=== PATIENT | female | born 1975 | race Two or more races ===

== ENCOUNTER 2016-08-01 03:55 | Inpatient (IN) | payer OTHER ==
[~2016-08-01] VITALS: Ht 165.1 cm; Wt 68.0 kg
[2016-08-01] VITALS (63 sets, daily range): BP systolic 98–141; BP diastolic 53–86
[~2016-08-01 03:55] MED LIST: ANUS2.5C2 PR; COLA100C3 PO; DIBU1OI TOP; MILKSUS PO; MOTR200T44 PO; STUACAP PO; TYLE325T5 PO
[2016-08-01 04:50] LABS: MEAN CORPUSCULAR HEMOGLOBIN 29.2 pg (27.0-33.0); MEAN CORPUSCULAR HGB CONC 33.1 g/dl (32.0-36.5); MEAN CORPUSCULAR VOLUME 88.2 fl (80.0-96.0); RED CELL DISTRIBUTION WIDTH 13.8 % (11.5-14.5); WHITE BLOOD COUNT 8.7 K/mm3 (4.0-10.0)
[2016-08-01] MEDS ORDERED: FENTANYL 2MCG/ML ROPIVACAINE 0.2% IN 0.9% NACL 200ML IVBAG As Ordered ONE (05:23)
[2016-08-01] MEDS ORDERED: LACTATED RINGER'S 1000 ML IV STA (05:26)
[2016-08-01] MEDS ORDERED: EPIDURAL COMMENT XX SCH (05:27)
[2016-08-01] MEDS ORDERED: ePHEDrine SULFATE 25 MG/5 ML(5MG/ML) SYRINGE IV PRN (05:27)
[2016-08-01] MEDS ORDERED: diphenhydrAMINE INJ 50MG/ML VIAL (J1200) IV PRN (05:27)
[2016-08-01] MEDS: FENTANYL/ROPIVACAINE/NACL BAG 200 ML EPIDURAL SCH (05:27)
[2016-08-01] MEDS ORDERED: LACTATED RINGER'S 1000 ML IV PRN (05:27)
[2016-08-01] MEDS ORDERED: ONDANSETRON 4MG/2ML VIAL (J2405) IV PRN (05:27)
[2016-08-01] MEDS ORDERED: EPIDURAL/PCA KEYS XX PRN (05:27)
[2016-08-01] MEDS ORDERED: REFRIGERATOR IV KEYS XX PRN (05:27)
[2016-08-01] MEDS ORDERED: NALOXONE INJ 0.4 MG/1 ML VIAL (J2310) IV PRN (05:27)
--- NOTE | 2016-08-01 05:41 | HPEPDOC ---
Obstetrical History & Physical General Date of Admission August 01, 2016 at 04:09 History of Present Illness 40 y/o at 41+2 presents with painful, reg ctx's. Was scheduled for IOL later today. Declined IOL at 39 weeks even though it was indicated and offered to her. was in [place], seen at [place], yolande scan not in chart and not available at this time, pt states it was normal, done in OR. 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 Past Medical History Medical History denies Surgical History: section Family History Significant Family History: No pertinent family hx Family History denies Social History Marital Status: Family situation: Spouse/partner home Psychosocial History: No pertinent psych hx * Smoker: non-smoker Alcohol: Denies Drugs: denies Abuse Violence Screening Have you been hit/kicked/slapp: No Have you been sexually assault: No Imunizations Tdap status: current Influenza Status: current Allergies Coded Allergies: No Known Allergies (Verified Allergy, Unknown, 08/16/10) Medications Scheduled (Suleman One 27-0.8-200 mg) 1 Cap Cap, 1 CAP PO DAILY Scheduled PRN Acetaminophen (Tylenol) 325 Mg Tab, 1,000 MG PO Q6HP PRN for MILD PAIN (PS 1-4) Dibucaine (Dibucaine) 1 % Oin, 1 % TOP Q4HP PRN for PAIN Docusate Sodium (Colace) 100 Mg Cap, 100 MG PO QHSP PRN for CONSTIPATION Hydrocortisone (Anusol-Hc) 2.5 % Cre, 0 MD Q4HP PRN for HEMORRHOIDS Ibuprofen (Motrin Ib) 200 Mg Tab, 800 MG PO Q8HP PRN for MODERATE PAIN (PS 5-7) Milk Of Magnesia (Milk of Magnesia) 1,200 Mg/15 Ml Marilee, 30 ML PO DAILYPRN PRN for CONSTIPATION Physical Examination Physical Examination GENERAL: Alert and oriented times three. ABDOMEN: Gravid and non-tender to touch. FETUS: Is vertex (VTX) by sterile vaginal examination, Vtx by RN who checked her at 0430, check reported as 3/80/-1 at 0430. EXTREMITIES: No edema. Laboratory Data 24H [facility]S Laboratory Tests 2 08/01/16 04:34: Serology Scanned Report Hepatitis B Testing 08/01/16 04:42: CBC/BMP Laboratory Tests 08/01/16 04:40 Red Blood Count 5.02, Mean Corpuscular Volume 88.2, Mean Corpuscular Hemoglobin 29.2, Mean Corpuscular Hemoglobin Concent 33.1, Red Cell Distribution Width 13.8 Urine Culture: No Growth Pertinent Laboratoy Data Blood Type: B+ RBC Antibody Screen: Negative HIV: Negative Hepatitis B: Negative Hepatitis C: Unknown Rapid Plasma Reagin: Nonreactive Rubella: Immune Varicella: Immune Chlamydia/Gonorrhea: Negative Group B Streptococcus: Negative Quad Screen Test: Positive (due to agem, neg NIPT (girl) and normal nuchal translucency) Cystic Fibrosis: Declined Glucose Tolerance Test: 98 Vaginal Examination Dilation: 3 cm Effacement: 80+% Station: -1 Cervical Consistency: Soft Cervical Position: Anterior Presentation: Cephalic presentation (per specific conversation with RN) Assessment Variability: Moderate Accelerations: Positive Decelerations: Variable (rare) Tocometer Contractions: Yes Frequency: regular Duration: greater than 60 seconds Strength: palpated as strong Assessment/Plan Assessment Labor at 41+2. TOLAC, proven already to almost 8 lbs. Desires epidural, getting now. Plan Admit and orient. 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 Diet: clrs Group B Streptococcus (GBS) [negative]. Labs and intravenous (IV) per unit protocol. Counseled on possible Pitocin and augmentation of labor (IOL). Lactated Ringers (LR): Bolus 1000mL, then at 125 mL/hr. Anticipate C-S as appropriate. SBAR to Dr Hensley at 0730 this AM. . Sessions SESSIONS,BELINDA Sexton MD August 01, 2016 05:41
[2016-08-01] MEDS: LR 1,000 ML IV SCH ×3 (13:26→21:26)
[2016-08-01] MEDS ORDERED: OXYTOCIN 30 UNITS IN 0.9% NaCl 500ML IV BAG (J2590) As Ordered ONE (14:09)
[2016-08-01] MEDS ORDERED: OXYTOCIN DRIP 30 UNITS in APPROPRIATE DILUENT 1 EA IV SCH (15:50)
[2016-08-01] MEDS ORDERED: DIBUCAINE 1% OINTMENT 30GM TOP PRN (16:00)
[2016-08-01] MEDS ORDERED: MOM 30ML SUSPENSION UDC PO PRN (16:00)
[2016-08-01] MEDS ORDERED: METHYLERGONOVINE MALEATE 0.2 MG TAB PO PRN (16:00)
[2016-08-01] MEDS ORDERED: METOCLOPRAMIDE INJ 10MG/2ML VIAL (J2765) IV PRN (16:00)
[2016-08-01] MEDS ORDERED: MEASLES,MUMPS,RUBELLA VACCINE INJ (MMR-II) (90707) SC SCH (16:00)
[2016-08-01] MEDS ORDERED: ACETAMINOPHEN 500 MG TAB PO PRN (16:00)
[2016-08-01] MEDS ORDERED: IBUPROFEN 800 MG TAB PO PRN (16:00)
[2016-08-01] MEDS ORDERED: RHOGAM 300 MCG (1500 IU) INJ (J2790) IM SCH (16:00)
[2016-08-01] MEDS ORDERED: DOCUSATE SODIUM 100 MG CAP PO PRN (16:00)
[2016-08-02] MEDS: FENTANYL/ROPIVACAINE/NACL BAG 200 ML EPIDURAL SCH (01:27)
[2016-08-02 06:22] VITALS: BP 105/58
[2016-08-02] MEDS ORDERED: PRENATAL VITAMIN TAB PO SCH (09:00)
== END 2016-08-02 15:30 | disposition home or self-care (01) | DRG 775 ==
LOC: M LDO 03:55 → M LDI 04:09 → M OBS 16:25
PROVIDERS: ADMIT Obstetrics & Gynecology; ATTEND Obstetrics & Gynecology
PROC: 10E0XZZ Delivery of Products of Conception, External Approach (ICD-10-PCS; principal; 2016-08-01)
PROC: 0HQ9XZZ Repair Perineum Skin, External Approach (ICD-10-PCS; 2016-08-01)
DX: O48.0 Post-term pregnancy (principal); Z37.0 Single live birth; O70.0 First degree perineal laceration during delivery; O09.523 Supervision of elderly multigravida, third trimester; O34.211 Maternal care for low transverse scar from previous cesarean delivery; Z79.899 Other long term (current) drug therapy; Z3A.41 41 weeks gestation of pregnancy

== ENCOUNTER → 2020-01-20 | Outpatient (CLI) | payer OTHER ==
[~2020-01-20] MED LIST changes: -COLA100C3 PO; +COLA100C5 PO; +DIBU10OI TOP; -DIBU1OI TOP; +MILK120011 PO; -MILKSUS PO
--- NOTE | 2020-01-20 15:51 | REPMRS ---
Patient History Patient had first child at age 35. No known family history of cancer. Digital Woman Screen Mammo: January 20, 2020 - Exam #: [id number] Bilateral CC and MLO view(s) were taken. Technologist: Rosie Oliveira, Technologist No prior studies available for comparison. FINDINGS: The breast tissue is heterogeneously dense. This may lower the sensitivity of mammography. The Volpara volumetric breast density category is: C. There is a densely calcified oval-shaped 13 mm nodule in the left breast inferior and medial quadrant consistent with a small benign fibroadenoma. There is no evidence of dominant mass, architectural distortion, or grouped microcalcification typical of malignancy. 3-D tomosynthesis shows no additional findings. Assessment: BI-RADS/ACR category 2 mammogram. Benign Findings. Recommendation Routine screening mammogram of both breasts in 1 year (for women over age 40). This patient's Lifetime Breast Cancer RIsk is estimated at 14.7 %. This mammogram was interpreted with the aid of an FDA-approved computer-aided dectection system. Electronically Signed By: Ventura Packer MD 01/20/20 1029
== END ==
LOC: M WHC 13:01
PROVIDERS: ATTEND Registered Nurse Maternal Newborn
DX: Z12.39 Encounter for other screening for malignant neoplasm of breast (principal)

== ENCOUNTER → 2021-12-21 | Outpatient (CLI) | payer OTHER ==
[~2021-12-21] MED LIST changes: -DIBU10OI TOP; +DIBU28OI2 TOP
== END ==
LOC: M WHC 12:47
PROVIDERS: ATTEND Family Medicine
DX: R92.2 Inconclusive mammogram (principal)

== ENCOUNTER → 2022-01-13 | Outpatient (CLI) | payer OTHER | LOC: M WHC 10:09 | PROVIDERS: ATTEND Family Medicine | DX: R92.2 Inconclusive mammogram (principal) | CPT/HCPCS: 77065; G0279 ==

== ENCOUNTER → 2023-12-01 | Outpatient (CLI) | payer OTHER | LOC: M WHC 13:30 | PROVIDERS: ATTEND Student in an Organized Health Care Education/Training Program | DX: Z12.31 Encounter for screening mammogram for malignant neoplasm of breast (principal) ==